=== PATIENT | male | born 1960 | race Asian ===

== ENCOUNTER 2018-03-03 19:32 | Emergency (ER) | payer OTHER ==
--- NOTE | 2018-03-03 20:01 | EDPHY ---
H & P Stated Complaint: Coughing up blood Time Seen by Provider: 03/03/18 19:43 HPI/ROS: CHIEF COMPLAINT: "I coughed up blood" HISTORY OF PRESENT ILLNESS: 57-year-old male, generally healthy, states that 2 days ago he coughed up less than pinky nail size amount of mucous with speckled blood. This happened for the past 2 mornings as well, all with similar size, less than the patient's pinky nail. 2 days ago he experience brief dyspnea. No dyspnea currently. At no point has experienced chest pain. He exercises regularly and never experiences chest pain with exertion or dyspnea beyond that expected with his exertional activity. No malignancy history. No coagulopathic disorder history. No immobilization. No calf pain, cramping, swelling.. No upper extremity pain, cramping, swelling. No unusual bruising. No unusual gingival bleeding. No melena or hematochezia. No rash. No night sweats. No fever or chills. PRIMARY CARE PROVIDER: REVIEW OF SYSTEMS: A ten point review of systems was performed and is negative with the exception of the items mentioned in the HPI PAST MEDICAL & SURGICAL HISTORY: No history of chronic pulmonary disease. No history of coagulopathic disorder. No malignancy history. SOCIAL HISTORY:Nonsmoker. No drug use. Patient is originally from [facility], has lived in [place] for 11 years. No recent international travel. PHYSICAL EXAM (Prior to examination, patient consented to physical exam, hands were washed and my usual and customary physical exam procedures followed) 1) GENERAL: Well-developed, well-nourished, alert and oriented. Appears to be in no acute distress. Smiling. 2) HEAD: Normocephalic, atraumatic 3) HEENT: Pupils equal, round, reactive to light bilaterally. Sclera anicteric. Nasopharynx, oropharynx, clear, no lesions. Ears bilaterally with normal tympanic membranes. 4) NECK: Full range of motion, no meningeal signs. 5) LUNGS: Clear auscultation bilaterally, no wheezes, no rhonchi, no retractions. 6) HEART: Regular rate and rhythm, no murmur, no heave, no gallop. 7) ABDOMEN: No guarding, no rebound, no focal tenderness, negative McBurney's, negative Faith's, negative Rovsing's, negative peritoneal sign, 8) MUSCULOSKELETAL: Moving all extremities, no focal areas of tenderness, no obvious trauma. No peripheral edema or discoloration. No periarticular warmth or pain. 9) BACK: No CVA tenderness, no midline vertebral tenderness, no fluctuance, no step-off, no obvious trauma, no visual or palpable abnormality. 10) SKIN: No rash, no petechiae. 11) Psychiatric: Patient is oriented X 3, there is no agitation. DIFFERENTIAL DIAGNOSIS: In no particular include but limited to malignancy, PE , pulmonary infectious etiology - Personal History Current Tetanus/Diphtheria Vaccine: Yes Current Tetanus Diphtheria and Acellular Pertussis (TDAP): Yes - Medical/Surgical History Hx Asthma: No Hx Chronic Respiratory Disease: No Hx Diabetes: No Hx Cardiac Disease: No Hx Renal Disease: No Hx Cirrhosis: No Hx Alcoholism: No Hx HIV/AIDS: No Hx Splenectomy or Spleen Trauma: No Other PMH: Unknown lung problems. - Social History Smoking Status: Never smoked Constitutional: Initial Vital Signs Temperature (C) 36.6 C 03/03/18 19:35 Heart Rate 77 03/03/18 19:35 Respiratory Rate 16 03/03/18 19:35 Blood Pressure 115/81 H 03/03/18 19:35 O2 Sat (%) 96 03/03/18 19:35 O2 Delivery Mode Room Air Allergies/Adverse Reactions: No Known Allergies Allergy (Unverified 03/03/18 19:39) Home Medications: Medication Instructions Recorded NK [No Known Home Meds] 03/03/18 Medical Decision Making - Diagnostics Imaging Results: Imaging Impressions Chest X-Ray 03/03/18 19:43 Impression: Possible airways disease. No evidence for pulmonary hemorrhage, pneumonia or mass. ED Course/Re-evaluation: 9:34 p.m.: Re-evaluation with serial examinations, case discussed with secondary supervising physician Dr. Gabi Horner in the ER. Doubt PE, doubt pulmonary infectious etiology in the absence of URI symptoms. He has been informed that malignancy is not ruled out. The importance of follow-up has been stressed on numerous instances. Specific etiology of some opts this is incompletely clear at this time although he describes a scant amount, less than the size of a chris which occurred intermittently with blood streaks only, not grossly bloody. At this time I do not think that initiation of antibiotics currently indicated absence of URI symptoms. Stressed close follow-up. He feels comfortable being discharged. - Data Points Laboratory Results: Laboratory Results 03/03/18 20:00 03/03/18 20:00 03/03/18 03/03/18 03/03/18 20:00 20:00 20:00 WBC 6.94 10^3/uL 10^3/uL (3.80-9.50) RBC 5.43 10^6/uL 10^6/uL (4.40-6.38) Hgb 16.0 g/dL g/dL (13.7-17.5) Hct 46.7 % % (40.0-51.0) MCV 86.0 fL fL (81.5-99.8) MCH 29.5 pg pg (27.9-34.1) MCHC 34.3 g/dL g/dL (32.4-36.7) RDW 12.3 % % (11.5-15.2) Plt Count 247 10^3/uL 10^3/uL (150-400) MPV 8.7 fL fL (8.7-11.7) Neut % (Auto) 50.2 % % (39.3-74.2) Lymph % (Auto) 38.5 % % (15.0-45.0) [place] % (Auto) 9.2 % % (4.5-13.0) Eos % (Auto) 1.6 % % (0.6-7.6) Baso % (Auto) 0.4 % % (0.3-1.7) Nucleat RBC Rel Count 0.0 % % (0.0-0.2) Absolute Neuts (auto) 3.48 10^3/uL 10^3/uL (1.70-6.50) Absolute Lymphs (auto) 2.67 10^3/uL 10^3/uL (1.00-3.00) Absolute Monos (auto) 0.64 10^3/uL 10^3/uL (0.30-0.80) Absolute Eos (auto) 0.11 10^3/uL 10^3/uL (0.03-0.40) Absolute Basos (auto) 0.03 10^3/uL 10^3/uL (0.02-0.10) Absolute Nucleated RBC 0.00 10^3/uL 10^3/uL (0-0.01) Immature Gran % 0.1 % % (0.0-1.1) Immature Gran # 0.01 10^3/uL 10^3/uL (0.00-0.10) PT 13.4 SEC SEC (12.0-15.0) INR 1.00 (0.83-1.16) APTT 30.0 SEC SEC (23.0-38.0) D-Dimer 0.28 ug/mLFEU ug/mLFEU (0.00-0.50) Sodium 141 mEq/L mEq/L (135-145) Potassium 3.9 mEq/L mEq/L (3.5-5.2) Chloride 103 mEq/L mEq/L (97-110) Carbon Dioxide 25 mEq/l mEq/l (22-31) Anion Gap 13 mEq/L mEq/L (8-16) BUN 12 mg/dL mg/dL (7-23) Creatinine 0.7 mg/dL mg/dL (0.7-1.3) Estimated GFR > 60 Glucose 103 mg/dL H mg/dL (70-100) Calcium 8.8 mg/dL mg/dL (8.5-10.4) Total Bilirubin 0.7 mg/dL mg/dL (0.1-1.4) Conjugated Bilirubin 0.3 mg/dL mg/dL (0.0-0.5) Unconjugated Bilirubin 0.4 mg/dL mg/dL (0.0-1.1) AST 27 IU/L IU/L (17-59) ALT 39 IU/L IU/L (21-72) Alkaline Phosphatase 65 IU/L IU/L (38-126) Total Protein 7.5 g/dL g/dL (6.3-8.2) Albumin 4.2 g/dL g/dL (3.5-5.0) Departure - Departure Disposition: Home, Routine, Self-Care Clinical Impression: Hemoptysis Condition: Good Instructions: Hemoptysis (ED) Additional Instructions: Return to the emergency department immediately for change in breathing habits, increase in coughing of blood, if you develop shortness of breath, if you develop chest pain, change in voice, change in swallowing habits, change in mental status, or any other symptoms that concern you. Referrals: Brandie Burroughs MD [Primary Care Provider] - 1-2 days without fail
[2018-03-03 20:19] LABS: PLATELET COUNT 247 10^3/uL (150-400)
[2018-03-03 20:20] LABS: PROTIME(PATIENT) 13.4 SEC (12.0-15.0)
[2018-03-03 21:48] VITALS: BP 122/86
== END 2018-03-03 21:48 | disposition home or self-care (01) ==
DX: R04.2 Hemoptysis (principal)

== ENCOUNTER → 2018-03-15 | Outpatient (CLI) | payer OTHER ==
[~2018-03-15] MED LIST: IOPAMIDOL (ISOVUE-300) 100 ML BTL ONE
== END ==
LOC: FIMAGING 08:31
PROVIDERS: ATTEND Internal Medicine
DX: J47.9 Bronchiectasis, uncomplicated (principal); J98.09 Other diseases of bronchus, not elsewhere classified
CPT/HCPCS: Q9967

== ENCOUNTER → 2018-08-24 | Outpatient (CLI) | payer OTHER | LOC: FIMAGING 08:34 | PROVIDERS: ATTEND Internal Medicine | DX: R13.14 Dysphagia, pharyngoesophageal phase (principal) ==